=== PATIENT | female | born 1945 | race Caucasian/White ===

== ENCOUNTER → 2021-11-04 14:12 | Outpatient (CLI) | payer MEDICARE, SELFPAY | PROVIDERS: Visit Provider Nurse Practitioner Family | DX: R31.9 Hematuria, unspecified (principal) | CPT/HCPCS: 87086 ==

== ENCOUNTER 2022-05-22 06:08 | Emergency (ER) | payer MEDICARE, SELFPAY ==
[2022-05-22 06:17] VITALS: BP 180/84; PULSE 79; RESP 16; TEMP 36.7; O2SAT 99; BMI 25.0
--- NOTE | 2022-05-22 06:42 | DI.CT.S_ITS ---
PROCEDURE: CT KIDNEY URETER BLADDER (KUB) INDICATIONS: left flank pain TECHNIQUE: Axial sections were acquired from the lung bases to the pubic symphysis. Coronal and sagittal reformats were performed. For radiation dose reduction, the following was used: automated exposure control, adjustment of mA and/or kV according to patient size. COMPARISON: None. FINDINGS: Image quality: Excellent. Lung bases: Unremarkable. Heart: No significant findings. URINARY: Right Kidney: No stones or hydronephrosis. Right Ureter: No hydroureter. Left Kidney: No stones or hydronephrosis. Left Ureter: No hydroureter. Bladder: Normal wall thickness. No stones. ABDOMEN: Liver: Unremarkable. Gallbladder: Unremarkable. Biliary ducts: Unremarkable. Pancreas: Unremarkable. Spleen: Unremarkable. Adrenal Glands: Unremarkable. Stomach and Bowel: Stomach, small bowel loops, and colon are unremarkable. The appendix is thin walled and gas filled. Peritoneum: No abnormal intraperitoneal fluid. No free air. Ventral Wall: No hernia. Abdominal Nodes: No enlarged retroperitoneal or mesenteric lymph nodes. Vessels: Aorta and inferior vena cava are normal in size. There are scattered atheromatous calcifications throughout the aorta and iliac arteries bilaterally. PELVIS: Pelvic Organs: Unremarkable. Pelvic Nodes: Unremarkable. Miscellaneous: No inguinal hernias are seen. Bones: Unremarkable. IMPRESSION: 1. No hydronephrosis, nephrolithiasis, hydroureter, or ureterolithiasis. 2. No acute intra-abdominal findings. Normal appendix. These findings are concordant with the overnight interpretation. Dictated by: Marija Matos M.D. on 05/22/2022 at 8:06 Approved by: Marija Matos M.D. on 05/22/2022 at 8:08
--- NOTE | 2022-05-22 06:45 | ED.BACK ---
HPI - Back Pain/Injury <Reyna Valdez DO - Last Filed: 05/26/22 19:25> General Chief Complaint: Back Pain/Injury Stated Complaint: severe back pain, constipation, insomia Time Seen by Provider: 05/22/22 06:28 Source: patient History of Present Illness HPI Narrative: Patient is a healthy 76-year-old female history of hypothyroid presenting today with on going back pain and spasm. It is mostly on the left. She has been taking Tylenol ibuprofen at home without any relief. She went to the walk-in clinic yesterday is were she was given Robaxin and said it did not help. She has been constipated as well for the last 10 days. She is starting to have incontinence as she can not get to the bathroom fast enough. However she can still tell when she has to go. She feels like the pain does radiate down into her leg it sometimes goes up into her arm. Occasionally around to her stomach. She does not have any painful frequent urination she denies any hematuria. Related Data Home Medications Medication Instructions Recorded Confirmed levothyroxine .Route 11/04/21 05/21/22 lisinopril .Route 11/04/21 05/21/22 Previous Rx's Medication Instructions Recorded methocarbamol 750 mg tablet 750 mg PO TID PRN Muscle strain 05/21/22 #20 tabs hydrocodone 5 mg-acetaminophen 325 1 tab PO Q6H PRN pain #10 tabs 05/22/22 mg tablet sulfamethoxazole 800 1 tab PO Q12H #20 tabs 05/22/22 mg-trimethoprim 160 mg tablet (Bactrim DS) Allergies Allergy/AdvReac Type Severity Reaction Status Date / Time erythromycin base Allergy Verified 05/22/22 06:17 Review of Systems <Reyna Valdez DO - Last Filed: 05/26/22 19:25> Review of Systems Narrative: GENERAL: Denies chills, fatigue, malaise, fever, sweats, travel HEENT: Denies sinus pain, ear pain, sore throat, difficulty swallowing, neck pain RESPIRATORY: Denies dyspnea, cough, wheezing, hemoptysis, sputum. CARDIOVASCULAR: Denies chest pain, palpitations, orthopnea, edema GASTROINTESTINAL: Denies nausea, vomiting, abdominal pain, diarrhea, constipation, melena. : Denies dysuria, frequency, incontinence, hematuria, urinary retention, flank pain. MUSCULOSKELETAL: See HPI SKIN: No rash, no erythema, no pruritus NEUROLOGIC: Denies weakness, dizziness, headache, numbness, change in speech, confusion PSYCHIATRIC: No concerning psychosocial issues. 12 point review of systems is negative except for those stated above and HPI Patient History <Reyna Valdez DO - Last Filed: 05/26/22 19:25> Social History Smoking Status: Never smoker Smoking Status: Never smoker Substance Use Type: does not use Exam <Reyna Valdez DO - Last Filed: 05/26/22 19:25> Initial Vital Signs Initial Vital Signs: Vital Signs Temperature 98.1 F 05/22/22 06:17 Pulse Rate 79 05/22/22 06:17 Respiratory Rate 16 05/22/22 06:17 Blood Pressure 180/84 H 05/22/22 06:17 Pulse Oximetry 99 05/22/22 06:17 Oxygen Delivery Method 05/22/22 06:17 GENERAL: Alert well-appearing 76-year-old female appears mildly uncomfortable and pain HEENT: Head atraumatic,EOMI, pupils reactive, face symmetric, moist mucous membranes CARDIOVASCULAR: Regular rate and rhythm without murmurs, rubs or gallops. RESPIRATORY: Breath sounds equal bilaterally, no wheezes rales or rhonchi. ABDOMEN: Soft, nontender. Normoactive bowel sounds all 4 quadrants. No guarding or rebound. BACK: No vertebral tenderness no step-off. Pain in left lower lumbar area. Definitely reproducible with touch : Mild left CVA tenderness EXTREMITIES: Normal range of motion, no clubbing or edema. Neurovascularly intact NEUROLOGICAL: Alert and oriented x4. SKIN: Warm, dry, no laceration, no petechiae, no rashes or lesions. <Anika Marshall DO - Last Filed: 05/22/22 20:55> Initial Vital Signs Initial Vital Signs: Vital Signs Temperature 98.1 F 05/22/22 06:17 Pulse Rate 79 05/22/22 06:17 Respiratory Rate 16 05/22/22 06:17 Blood Pressure 180/84 H 05/22/22 06:17 Pulse Oximetry 99 05/22/22 06:17 Oxygen Delivery Method 05/22/22 06:17 Course <Reyna Valdez DO - Last Filed: 05/26/22 19:25> Orders Ordered: Discontinued Medications Ketorolac Tromethamine (Ketorolac 30 Mg/Ml Vial) 15 mg IV NOW ONE Stop: 05/22/22 06:43 Last Admin: 05/22/22 07:25 Dose: 15 mg Documented By: GRACIE Vital Signs Vital signs: Vital Signs - 8 hr 05/22/22 06:17 Temperature 98.1 F Pulse Rate 79 Respiratory Rate 16 Blood Pressure 180/84 H Pulse Oximetry 99 Oxygen Delivery Method Room Air <Anika Marshall, DO - Last Filed: 05/22/22 20:55> Orders Ordered: Discontinued Medications Ketorolac Tromethamine (Ketorolac 30 Mg/Ml Vial) 15 mg IV NOW ONE Stop: 05/22/22 06:43 Last Admin: 05/22/22 07:25 Dose: 15 mg Documented By: GRACIE Vital Signs Vital signs: Vital Signs - 8 hr 05/22/22 06:17 Temperature 98.1 F Pulse Rate 79 Respiratory Rate 16 Blood Pressure 180/84 H Pulse Oximetry 99 Oxygen Delivery Method Room Air MDM - Back Pain/Injury <Reyna Valdez DO - Last Filed: 05/26/22 19:25> Lab Data Result diagrams: 05/22/22 07:03 05/22/22 07:03 Labs: Lab Results 05/22/22 05/22/22 05/22/22 Range/Units 07:03 07:03 07:10 WBC 9.0 (4.5-11.0) X10^3/uL RBC 4.58 (4.0-5.2) X10^6/uL Hgb 13.4 (12.0-16.0) g/dL Hct 39.5 (36-46) % MCV 86.2 (80-100) fL MCH 29.4 (26-34) PG MCHC 34.1 (30-36) % RDW 13.6 (11.6-14.8) % Plt Count 279 (150-400) X10^3/uL Neut % (Auto) 50.4 (50-75) % Lymph % (Auto) 39.0 (25-40) % [place] % (Auto) 8.2 (3-14) % Eos % (Auto) 1.6 L (2-4) % Baso % (Auto) 0.8 (0-2) % Neut # (Auto) 4500 (9013-8288) /uL Lymph # (Auto) 3500 (8327-3733) /uL [place] # (Auto) 700 (0-900) /uL Eos # (Auto) 100 (0-450) /uL Baso # (Auto) 100 (0-100) /uL Sodium 135 L (137-145) mmol/L Potassium 3.8 (3.4-5.1) mmol/L Chloride 100 (98-107) mmol/L Carbon Dioxide 32 (22-32) mmol/L BUN 13 (7-17) mg/dL Creatinine 0.61 (0.52-1.04) mg/dL Estimated GFR > 60 (>60) mL/min BUN/Creatinine Ratio 21.3 (6-22) Glucose 101 (80-110) mg/dL Calcium 9.1 (8.4-10.2) mg/dL Total Bilirubin 0.3 (0.2-1.3) mg/dL AST 29 (14-36) IU/L ALT 24 (<35) IU/L Alkaline Phosphatase 57 (38-126) U/L Total Protein 7.1 (6.3-8.2) g/dL Albumin 4.1 (3.5-5.0) g/dL Globulin 3.0 (1.7-4.1) g/dL Albumin/Globulin Ratio 1.4 (1.0-2.8) Urine Color Yellow Urine Appearance Clear Urine pH 6.5 (4.5-8.0) Ur Specific [place] 1.010 (1.000-1.035) Urine Protein Negative (Negative) Urine Glucose (UA) Negative (Negative) g/dL Urine Ketones Negative (NEGATIVE) Urine Occult Blood Trace-intact (Negative) Urine Nitrate Negative (Negative) Urine Bilirubin Negative (NEGATIVE) Urine Urobilinogen 0.2 (0.2) E.U./dL Ur Leukocyte Esterase 1+ H (NEGATIVE) Urine RBC 1-5/hpf (0-5/HPF) Urine WBC 1-5/hpf (0-5/HPF) Ur Squamous Epith Cells 5-10 /hpf H (0-5/HPF) Urine Bacteria Many (>30) H (None) Ur Culture Indicated? Specimen cultured MDM Narrative Medical decision making narrative: Pain is definitely reproducible to palpation mostly on the left side. It does seem to be muscle spasm. However she has been constipated for the last 10 days it might radiate around to the front this fall. At this time will do some is blood work and CT to rule out CT scan. I do not suspect dissection is. Patient is signed out to Dr. Marshall <Anika Marshall, DO - Last Filed: 05/22/22 20:55> Lab Data Labs: Lab Results 05/22/22 05/22/22 05/22/22 Range/Units 07:03 07:03 07:10 WBC 9.0 (4.5-11.0) X10^3/uL RBC 4.58 (4.0-5.2) X10^6/uL Hgb 13.4 (12.0-16.0) g/dL Hct 39.5 (36-46) % MCV 86.2 (80-100) fL MCH 29.4 (26-34) PG MCHC 34.1 (30-36) % RDW 13.6 (11.6-14.8) % Plt Count 279 (150-400) X10^3/uL Neut % (Auto) 50.4 (50-75) % Lymph % (Auto) 39.0 (25-40) % [place] % (Auto) 8.2 (3-14) % Eos % (Auto) 1.6 L (2-4) % Baso % (Auto) 0.8 (0-2) % Neut # (Auto) 4500 (4199-5922) /uL Lymph # (Auto) 3500 (9089-0997) /uL [place] # (Auto) 700 (0-900) /uL Eos # (Auto) 100 (0-450) /uL Baso # (Auto) 100 (0-100) /uL Sodium 135 L (137-145) mmol/L Potassium 3.8 (3.4-5.1) mmol/L Chloride 100 (98-107) mmol/L Carbon Dioxide 32 (22-32) mmol/L BUN 13 (7-17) mg/dL Creatinine 0.61 (0.52-1.04) mg/dL Estimated GFR > 60 (>60) mL/min BUN/Creatinine Ratio 21.3 (6-22) Glucose 101 (80-110) mg/dL Calcium 9.1 (8.4-10.2) mg/dL Total Bilirubin 0.3 (0.2-1.3) mg/dL AST 29 (14-36) IU/L ALT 24 (<35) IU/L Alkaline Phosphatase 57 (38-126) U/L Total Protein 7.1 (6.3-8.2) g/dL Albumin 4.1 (3.5-5.0) g/dL Globulin 3.0 (1.7-4.1) g/dL Albumin/Globulin Ratio 1.4 (1.0-2.8) Urine Color Yellow Urine Appearance Clear Urine pH 6.5 (4.5-8.0) Ur Specific [place] 1.010 (1.000-1.035) Urine Protein Negative (Negative) Urine Glucose (UA) Negative (Negative) g/dL Urine Ketones Negative (NEGATIVE) Urine Occult Blood Trace-intact (Negative) Urine Nitrate Negative (Negative) Urine Bilirubin Negative (NEGATIVE) Urine Urobilinogen 0.2 (0.2) E.U./dL Ur Leukocyte Esterase 1+ H (NEGATIVE) Urine RBC 1-5/hpf (0-5/HPF) Urine WBC 1-5/hpf (0-5/HPF) Ur Squamous Epith Cells 5-10 /hpf H (0-5/HPF) Urine Bacteria Many (>30) H (None) Ur Culture Indicated? Specimen cultured MDM Narrative Medical decision making narrative: Pain is definitely reproducible to palpation mostly on the left side. It does seem to be muscle spasm. However she has been constipated for the last 10 days it might radiate around to the front this fall. At this time will do some is blood work and CT to rule out CT scan. I do not suspect dissection is. Patient is signed out to Dr. Marshall. 05/22/22 Rolando: Patient seen and evaluated by myself. Patient does have reproducible pain on back exam. Patient's urine shows leuks, bacteria 1-5 epithelials but no nitrates. Patient does have some increased pain with movement. I does seem to be musculoskeletal but after discussion would treat antibiotics she has had bladder infections without symptoms in the past. She is had 11 days of pain she is also constipated during that time frame although not having any vomiting or obstructive changes. So we discussed stool softeners and way to help increase with high-fiber and even juice. We discussed return precautions. Patient drove herself does not have other options so she still has pain but is ambulating without issue. No red flag symptoms from a back perspective. Return precautions. Discharge Plan Departure Patient Disposition: Home Clinical Impression: Back pain, Constipation Instructions: DI for Low Back Pain Activity Restrictions/Additional Instructions: Follow-up with your physician. Please take antibiotics until completely gone. Your urine shows possible infection. If an infection or kidney infection is the source of your pain you should feel better after 24-48 hours with antibiotics. You can take ibuprofen up to 800 mg every 8 hours. You may also take [place] 1-2 tablets every 6 hours as needed for pain. This medication can make you sleepy do not drive, perform hazardous activities or make any major decisions while taking it. This medication will make you constipated please take a stool softener, such as Colace twice daily until stools are soft and regular. I would also recommend high-fiber diet and maybe even adding juice regularly. It may be helpful if you feel stool at the opening of the rectum for glycerin suppository or enema. Prescription sent to [facility] in [place]. Please return for fevers, rapidly worsening pain, vomiting, new numbness, weakness or loss of bowel or bladder control, inability to lift or move your leg, if you are not passing gas or having bowel movements or other new or concerning changes. Prescriptions: New sulfamethoxazole-trimethoprim [Bactrim DS] 800-160 mg tablet 1 tab PO Q12H Qty: 20 0RF hydrocodone-acetaminophen 5-325 mg tablet 1 tab PO Q6H PRN (Reason: pain) Qty: 10 0RF No Action lisinopril .Route Rx Instructions: as directed levothyroxine .Route Rx Instructions: as directed methocarbamol 750 mg tablet 750 mg PO TID PRN (Reason: Muscle strain) Qty: 20 0RF Referrals: Miscellaneous,Doctor, MD [Primary Care Provider] - Visit Report Forms: Patient Portal/API
[2022-05-22 07:14] LABS: Add Manual Diff / Slide Review NO; Basophils Absolute Auto 100 /uL (0-100); Basophils Percent Auto 0.8 % (0-2); Eosinophils Absolute Auto 100 /uL (0-450); Eosinophils Percent Auto 1.6 % (2-4); Hematocrit 39.5 % (36-46); Hemoglobin 13.4 g/dL (12.0-16.0); Lymphocytes Absolute Auto 3500 /uL (1100-4500); Mean Corpuscular HGB Conc 34.1 % (30-36); Mean Corpuscular Hemoglobin 29.4 PG (26-34); Mean Corpuscular Volume 86.2 fL (80-100); Monocytes Absolute Auto 700 /uL (0-900); Monocytes Percent Auto 8.2 % (3-14); Neutrophils Absolute Auto 4500 /uL (1500-7000); Neutrophils Percent Auto 50.4 % (50-75); Platelet Count 279 X10^3/uL (150-400); Red Blood Cell Count 4.58 X10^6/uL (4.0-5.2); Red Cell Distribution Width 13.6 % (11.6-14.8)
[2022-05-22] MEDS: KETOROLAC 30 MG/ML VIAL 15 MG IV (07:25)
[2022-05-22 07:28] LABS: Alanine Aminotransferase 24 IU/L (<35); Albumin 4.1 g/dL (3.5-5.0); Albumin Globulin Ratio 1.4 (1.0-2.8); Alkaline Phosphatase 57 U/L (38-126); Aspartate Aminotransferase 29 IU/L (14-36); BUN Creatinine Ratio 21.3 (6-22); Bilirubin Total 0.3 mg/dL (0.2-1.3); Blood Urea Nitrogen 13 mg/dL (7-17); Calcium 9.1 mg/dL (8.4-10.2); Carbon Dioxide 32 mmol/L (22-32); Chloride 100 mmol/L (98-107); Estimated Glomerular Filt Rate > 60 mL/min (>60); Glucose 101 mg/dL (80-110); HEMOLYSIS < 15 (0-50); Potassium 3.8 mmol/L (3.4-5.1); Sodium 135 mmol/L (137-145); Total Protein 7.1 g/dL (6.3-8.2)
[2022-05-22 08:40] LABS: Appearance Urine UA CLEAR; Bilirubin Urine UA NEGATIVE (NEGATIVE); Color Urine UA YELLOW; Glucose Urine UA NEGATIVE (Negative); Ketones Urine UA NEGATIVE (NEGATIVE); Leukocyte Esterase Urine UA 1+ (NEGATIVE); Nitrite Urine UA NEGATIVE (Negative); Occult Blood Urine UA TRACE-INTACT (Negative); Protein Urine UA NEGATIVE (Negative); Urobilinogen Urine UA 0.2 E.U./dL (0.2)
[2022-05-22 08:42] LABS: pH Urine UA 6.5 (4.5-8.0)
[2022-05-22 08:56] LABS: Bacteria Urine Many (>30); Culture Indicated Urine Specimen Cultured; RBC Urine 1-5/HPF (0-5/HPF); Squamous Epithelial Cell Urine 5-10 /HPF (0-5/HPF); WBC Urine 1-5/HPF (0-5/HPF)
[2022-05-22 09:59] VITALS: BP 143/81; PULSE 78; RESP 20; TEMP 36.7; O2SAT 99
--- NOTE | 2022-05-23 11:03 | PC.NURSE ---
pt called wanting to know if her urine was back because she doesn't like taking sulfa based drugs, she doesn't think it works and doesn't feel well when taking it.
== END 2022-05-22 10:00 | disposition home or self-care (01) ==
PROVIDERS: Emergency Medicine; Emergency Provider Emergency Medicine
DX: M54.50 Low back pain, unspecified (principal); K59.00 Constipation, unspecified; G47.00 Insomnia, unspecified
CPT/HCPCS: 36415; 74176; 80053; 81001; 81003; 85025; 87086; 96374; 99284; J1885

== ENCOUNTER 2022-05-23 15:54 | Emergency (ER) | payer MEDICARE, SELFPAY ==
[2022-05-23] VITALS (10 sets, daily range): BP systolic 132–173; BP diastolic 60–78; PULSE 75–81; RESP 17–28; TEMP 36.8; O2SAT 95–99; BMI 26.6
--- NOTE | 2022-05-23 17:13 | ED.SOB ---
HPI - SOB/Dyspnea <Gera Tate PA-C - Last Filed: 05/23/22 19:47> General Chief Complaint: Shortness of Breath/Dyspnea Stated Complaint: SOB Time Seen by Provider: 05/23/22 17:05 Source: patient and EMS Mode of arrival: EMS Limitations: no limitations History of Present Illness HPI Narrative: 76-year-old female with past medical history constipation presents to the ED with left-sided lower back pain. Patient was seen in the ED yesterday, was prescribed Bactrim for a UTI/kidney infection and Vicodin for the back pain. Patient states that she took the medicine last night, feels worse today. Patient reports new symptoms including nausea and headache. She suspects this is from the new medications. Patient states that her back pain has not improved. Patient denies numbness, tingling, weakness. Patient states that the lobe back pain radiates down to her left hip. Patient denies urinary symptoms including dysuria, urinary hesitancy, urinary urgency, hematuria. Patient denies fever, chills, chest pain. Patient initially stated that she was short of breath, however clarified that she was just breathing shallowly due to the pain. Patient was able to practice deep and slow breathing in the ED and did not feel short of breath. Related Data Home Medications Medication Instructions Recorded Confirmed levothyroxine .Route 11/04/21 05/21/22 lisinopril .Route 11/04/21 05/21/22 Previous Rx's Medication Instructions Recorded methocarbamol 750 mg tablet 750 mg PO TID PRN Muscle strain 05/21/22 #20 tabs hydrocodone 5 mg-acetaminophen 325 1 tab PO Q6H PRN pain #10 tabs 05/22/22 mg tablet sulfamethoxazole 800 1 tab PO Q12H #20 tabs 05/22/22 mg-trimethoprim 160 mg tablet (Bactrim DS) Allergies Allergy/AdvReac Type Severity Reaction Status Date / Time erythromycin base Allergy Verified 05/22/22 06:17 Review of Systems <Gera Tate PA-C - Last Filed: 05/23/22 19:47> Review of Systems ROS Unobtainable: All systems reviewed & are unremarkable except as noted in HPI and below Constitutional Constitutional: Denies chills, Denies fatigue, Denies fever(s), Denies frequent falls, Reports headache(s), Denies lethargy and Denies weakness Eyes Eyes: Denies change in vision, Denies eye discharge, Denies irritation and Denies loss of vision ENT Ears, Nose, Mouth, and Throat: Denies change in voice, Denies dizziness, Reports headache(s), Denies neck pain, Denies sore throat and Denies throat swelling Cardiovascular Cardiovascular: Denies chest pain, Denies irregular heart rhythm, Denies lightheadedness, Denies palpitations, Denies dyspnea, Denies dyspnea on exertion and Denies orthopnea Respiratory Respiratory: Denies cough, Denies dyspnea, Denies dyspnea on exertion and Denies wheezing Gastrointestinal Gastrointestinal: Denies abdominal pain, Denies change in bowel habits, Denies diarrhea, Reports nausea and Denies vomiting Genitourinary Genitourinary: Denies hematuria, Denies flank pain, Denies urinary incontinence and Denies urinary urgency Musculoskeletal Musculoskeletal: Reports back pain, Denies muscle weakness, Denies neck pain, Denies numbness and Denies tingling Integumentary/Breasts Skin/Breast: Denies pruritus, Denies erythema, Denies rash and Denies wounds Neurologic Neurologic: Denies behavioral changes, Denies confusion, Denies dizziness, Denies frequent falls, Reports headache(s), Denies loss of vision, Denies numbness, Denies tingling and Denies weakness Psychiatric Psychiatric: Denies anxiety, Denies behavioral changes, Denies confusion, Denies depression, Denies homicidal ideation and Denies suicidal ideation Endocrine Endocrine: Denies fatigue, Denies flushing and Denies palpitations Hematologic/Lymphatic Hematologic/Lymphatic: Denies easy bruising Allergic/Immunologic Allergic/Immunologic: Denies urticaria, Denies throat swelling and Denies wheezing Patient History <Gera Tate PA-C - Last Filed: 05/23/22 19:47> Social History Smoking Status: Never smoker Smoking Status: Never smoker Substance Use Type: does not use Exam <Gera Tate PA-C - Last Filed: 05/23/22 19:47> Narrative Exam Narrative: Const General:?cooperative, healthy appearing and comfortable [facility] Head:?normal to inspection Ears:?hearing grossly normal bilaterally Nose:?external nose normal Face and sinus:?normal facial exam and sinuses nontender Mouth:?oral mucosae normal Throat:?posterior oropharynx normal Eyes General:?appearance normal, both eyes and all related structures Neck Neck:?normal visual inspection and no lymphadenopathy noted Resp Effort & Inspection:?normal respiratory effort Auscultation:?clear to auscultation bilaterally Cardio Rate:?regular rate Rhythm:?regular rhythm Musculoskeletal No midline tenderness to palpation. There is some paraspinal tenderness to palpation on the left lower back. Strength and sensation is intact. Range of motion intact. Patient is able to walk. Patient is neurovascularly intact. Neuro General:?patient alert, patient awake and patient oriented x3 Initial Vital Signs Initial Vital Signs: Vital Signs Pulse Rate 78 05/23/22 16:05 Respiratory Rate 21 05/23/22 16:05 Pulse Oximetry 99 05/23/22 16:05 <Clem Alcala DO - Last Filed: 05/24/22 07:06> Initial Vital Signs Initial Vital Signs: Vital Signs Pulse Rate 78 05/23/22 16:05 Respiratory Rate 21 05/23/22 16:05 Pulse Oximetry 99 05/23/22 16:05 Course <Gera Tate PA-C - Last Filed: 05/23/22 19:47> Orders Ordered: Discontinued Medications Cyclobenzaprine HCl (Cyclobenzaprine 10 Mg Tablet) 10 mg PO NOW ONE Stop: 05/23/22 17:29 Last Admin: 05/23/22 17:42 Dose: 10 mg Documented By: RB Famotidine (Famotidine 20 Mg/2 Ml Vial) 20 mg IV NOW [facility] Last Admin: 05/23/22 17:41 Dose: 20 mg Documented By: RB Ketorolac Tromethamine (Ketorolac 30 Mg/Ml Vial) 15 mg IV NOW ONE Stop: 05/23/22 17:29 Last Admin: 05/23/22 17:41 Dose: 15 mg Documented By: RB Lidocaine (Lidocaine Patch 1 Each Adh..Patch) 1 each TOP NOW ONE Stop: 05/23/22 17:30 Last Admin: 05/23/22 17:41 Dose: 1 each Documented By: RB Lidocaine (Remove Lidocaine Patch) 1 each TOP BEDTIME [facility] Ondansetron HCl (Ondansetron 4 Mg/2 Ml Inj) 4 mg IV NOW ONE Stop: 05/23/22 17:29 Last Admin: 05/23/22 17:41 Dose: 4 mg Documented By: RB Vital Signs Vital signs: Vital Signs - 8 hr 05/23/22 16:15 05/23/22 16:05 05/23/22 16:18 Temperature 98.2 F Pulse Rate 77 78 81 Respiratory Rate 20 21 20 Blood Pressure 147/75 H Pulse Oximetry 99 99 99 Oxygen Delivery Method Room Air 05/23/22 16:18 05/23/22 16:30 05/23/22 16:30 Temperature Pulse Rate 78 Respiratory Rate 18 Blood Pressure 147/75 H 145/68 H Pulse Oximetry 99 Oxygen Delivery Method 05/23/22 17:00 05/23/22 17:00 05/23/22 17:30 Temperature Pulse Rate 77 Respiratory Rate 17 Blood Pressure 158/66 H 162/72 H Pulse Oximetry 99 Oxygen Delivery Method 05/23/22 17:30 05/23/22 17:50 05/23/22 17:50 Temperature Pulse Rate 77 80 Respiratory Rate 26 H 28 H Blood Pressure 173/74 H Pulse Oximetry 98 95 Oxygen Delivery Method 05/23/22 18:00 05/23/22 18:01 05/23/22 18:01 Temperature Pulse Rate 75 76 Respiratory Rate 23 28 H Blood Pressure 132/60 Pulse Oximetry 97 95 Oxygen Delivery Method 05/23/22 19:29 Temperature 98.2 F Pulse Rate 78 Respiratory Rate 20 Blood Pressure 172/78 H Pulse Oximetry 98 Oxygen Delivery Method Room Air <Clem Alcala DO - Last Filed: 05/24/22 07:06> Orders Ordered: Discontinued Medications Cyclobenzaprine HCl (Cyclobenzaprine 10 Mg Tablet) 10 mg PO NOW ONE Stop: 05/23/22 17:29 Last Admin: 05/23/22 17:42 Dose: 10 mg Documented By: RB Famotidine (Famotidine 20 Mg/2 Ml Vial) 20 mg IV NOW [facility] Last Admin: 05/23/22 17:41 Dose: 20 mg Documented By: RB Ketorolac Tromethamine (Ketorolac 30 Mg/Ml Vial) 15 mg IV NOW ONE Stop: 05/23/22 17:29 Last Admin: 05/23/22 17:41 Dose: 15 mg Documented By: RB Lidocaine (Lidocaine Patch 1 Each Adh..Patch) 1 each TOP NOW ONE Stop: 05/23/22 17:30 Last Admin: 05/23/22 17:41 Dose: 1 each Documented By: RB Lidocaine (Remove Lidocaine Patch) 1 each TOP BEDTIME [facility] Ondansetron HCl (Ondansetron 4 Mg/2 Ml Inj) 4 mg IV NOW ONE Stop: 05/23/22 17:29 Last Admin: 05/23/22 17:41 Dose: 4 mg Documented By: SUSU Vital Signs Vital signs: Vital Signs - 8 hr 05/23/22 16:15 05/23/22 16:05 05/23/22 16:18 Temperature 98.2 F Pulse Rate 77 78 81 Respiratory Rate 20 21 20 Blood Pressure 147/75 H Pulse Oximetry 99 99 99 Oxygen Delivery Method Room Air 05/23/22 16:18 05/23/22 16:30 05/23/22 16:30 Temperature Pulse Rate 78 Respiratory Rate 18 Blood Pressure 147/75 H 145/68 H Pulse Oximetry 99 Oxygen Delivery Method 05/23/22 17:00 05/23/22 17:00 05/23/22 17:30 Temperature Pulse Rate 77 Respiratory Rate 17 Blood Pressure 158/66 H 162/72 H Pulse Oximetry 99 Oxygen Delivery Method 05/23/22 17:30 05/23/22 17:50 05/23/22 17:50 Temperature Pulse Rate 77 80 Respiratory Rate 26 H 28 H Blood Pressure 173/74 H Pulse Oximetry 98 95 Oxygen Delivery Method 05/23/22 18:00 05/23/22 18:01 05/23/22 18:01 Temperature Pulse Rate 75 76 Respiratory Rate 23 28 H Blood Pressure 132/60 Pulse Oximetry 97 95 Oxygen Delivery Method 05/23/22 19:29 Temperature 98.2 F Pulse Rate 78 Respiratory Rate 20 Blood Pressure 172/78 H Pulse Oximetry 98 Oxygen Delivery Method Room Air MDM - SOB/Dyspnea <Gera Tate PA-C - Last Filed: 05/23/22 19:47> MDM Narrative Medical decision making narrative: 76-year-old female with past medical history constipation presents to the ED with left-sided lower back pain. Patient's history and physical exam consistent with a musculoskeletal sprain/strain from swimming. Patient advised to discontinue Bactrim since she does not have any urinary symptoms. Patient advised to discontinue Vicodin due to the headache and nausea that it might be causing her. Patient responded well to Zofran, lidocaine patch. Patient states that her nausea and headache resolved. Patient's back pain is marginally better. Patient agrees to continue Tylenol, ibuprofen for the pain as well as the lidocaine patches. ED return precautions were discussed with patient. Patient verbalized understanding. Discharge Plan Departure Patient Disposition: Home Clinical Impression: Back pain Instructions: Low Back Pain Activity Restrictions/Additional Instructions: You were evaluated in the ED today for back pain, nausea, headache. Your back pain is likely due to the swimming, is musculoskeletal and will improve with Tylenol, ibuprofen and rest. Your nausea and headache were likely related to the Vicodin and the Bactrim. Since you have no urinary symptoms, you may stop the Bactrim as well as the Vicodin. Return to the ED if you have trouble urinating, you feel numbness, tingling, weakness. Prescriptions: No Action lisinopril .Route Rx Instructions: as directed levothyroxine .Route Rx Instructions: as directed methocarbamol 750 mg tablet 750 mg PO TID PRN (Reason: Muscle strain) Qty: 20 0RF sulfamethoxazole-trimethoprim [Bactrim DS] 800-160 mg tablet 1 tab PO Q12H Qty: 20 0RF hydrocodone-acetaminophen 5-325 mg tablet 1 tab PO Q6H PRN (Reason: pain) Qty: 10 0RF Referrals: Miscellaneous,Doctor, MD [Primary Care Provider] - Visit Report Forms: Patient Portal/API <Clem Alcala DO - Last Filed: 05/24/22 07:06> [facility] Dr Alcala Co-Sign Statement: I was available for consultation during this patient's emergency department visit. This chart is signed by myself for administrative purposes only. I did not have direct contact with this patient during this visit. They were seen independently by the APC.
[2022-05-23] MEDS: KETOROLAC 30 MG/ML VIAL 15 MG IV (17:41)
[2022-05-23] MEDS: FAMOTIDINE 20 MG/2 ML VIAL IV (17:41)
[2022-05-23] MEDS: ONDANSETRON 4 MG/2 ML INJ IV (17:41)
[2022-05-23] MEDS: LIDOCAINE PATCH 1 EACH ADH..PATCH TOP (17:41)
[2022-05-23] MEDS: CYCLOBENZAPRINE 10 MG TABLET PO (17:42)
== END 2022-05-23 19:30 | disposition home or self-care (01) ==
PROVIDERS: Emergency Provider Student in an Organized Health Care Education/Training Program
DX: M54.50 Low back pain, unspecified (principal); R11.0 Nausea; R51.9 Headache, unspecified
CPT/HCPCS: 93005; 96374; 96375; 99284; J1885; J2405